=== PATIENT | female | born 2000 | race Caucasian/White ===

== ENCOUNTER 2021-03-31 19:33 | Emergency (ER) | payer BC ==
[~2021-03-31] VITALS: Ht 165.1 cm; Wt 59.0 kg
[~2021-03-31 19:33] MED LIST: HYDROCODON-ACE1 EA10 PO; IBUPROFEN600 MG PO; LEFLUNOMIDE20 MG PO; LORATADINE10 MG PO; NAPROXEN500 M1 PO; ORENCIA125 MG/1 M IV; TYLENOL EXTRA500 MG PO
== END 2021-03-31 22:20 | disposition home or self-care (01) ==
LOC: ED 19:33
DX: R79.9 Abnormal finding of blood chemistry, unspecified (principal); M08.00 Unspecified juvenile rheumatoid arthritis of unspecified site
CPT/HCPCS: 80053; 81001; 84703; 85025; 86850; 86900; 86901; 96374; 99282-25